=== PATIENT | female | born 1965 | race Caucasian/White ===

== ENCOUNTER → 2024-02-11 06:20 | Day surgery (SDC) | payer OTHER, SELFPAY | LOC: GI 06:20 | PROVIDERS: ATTENDING PHYSICIAN Internal Medicine Gastroenterology | DX: Z12.11 Encounter for screening for malignant neoplasm of colon (principal); R19.4 Change in bowel habit; R10.13 Epigastric pain; K64.8 Other hemorrhoids; K44.9 Diaphragmatic hernia without obstruction or gangrene; K31.89 Other diseases of stomach and duodenum; K29.50 Unspecified chronic gastritis without bleeding | CPT/HCPCS: 43239; G0105; 88305; 88342 ==

== ENCOUNTER → 2024-04-29 07:53 | Outpatient (REF) | payer OTHER, SELFPAY | LOC: RAD 07:53 | PROVIDERS: ATTENDING PHYSICIAN Physician Assistant; FAMILY PHYSICIAN Physician Assistant | DX: R68.81 Early satiety (principal) | CPT/HCPCS: 78264; A9541 ==

== ENCOUNTER → 2024-05-11 06:52 | Outpatient (REF) | payer OTHER, SELFPAY | LOC: RAD 06:52 | PROVIDERS: ATTENDING PHYSICIAN Physician Assistant; FAMILY PHYSICIAN Physician Assistant | DX: R10.13 Epigastric pain (principal) | CPT/HCPCS: 76700 ==

== ENCOUNTER → 2024-08-17 17:19 | Outpatient (REF) | payer OTHER, SELFPAY | LOC: RAD 17:19 | PROVIDERS: ATTENDING PHYSICIAN Internal Medicine | DX: M75.41 Impingement syndrome of right shoulder (principal) | CPT/HCPCS: 73030 ==

== ENCOUNTER → 2024-09-25 07:17 | Outpatient (REF) | payer OTHER, SELFPAY | LOC: MRI 07:17 | PROVIDERS: ATTENDING PHYSICIAN Orthopaedic Surgery; FAMILY PHYSICIAN Physician Assistant | DX: M54.2 Cervicalgia (principal) | CPT/HCPCS: 72141 ==

== ENCOUNTER → 2024-09-29 17:21 | Outpatient (REF) | payer OTHER, SELFPAY | LOC: WDC 17:21 | PROVIDERS: ATTENDING PHYSICIAN Obstetrics & Gynecology; FAMILY PHYSICIAN Physician Assistant | DX: Z12.31 Encounter for screening mammogram for malignant neoplasm of breast (principal) | CPT/HCPCS: 77063; 77067 ==

== ENCOUNTER → 2024-11-14 07:40 | Outpatient (REF) | payer OTHER, SELFPAY | LOC: RCS 07:40 | PROVIDERS: ATTENDING PHYSICIAN Pain Medicine Interventional Pain Medicine; FAMILY PHYSICIAN Physician Assistant | DX: Z01.818 Encounter for other preprocedural examination (principal) | CPT/HCPCS: 93005 ==

== ENCOUNTER 2025-01-11 06:23 | Outpatient (RCR) | payer OTHER, SELFPAY | END 2025-01-11 23:59 | disposition home or self-care (01) | LOC: RPT 06:23 | PROVIDERS: ATTENDING PHYSICIAN Physician Assistant; FAMILY PHYSICIAN Physician Assistant | DX: M54.12 Radiculopathy, cervical region (principal); M48.02 Spinal stenosis, cervical region; M50.30 Other cervical disc degeneration, unspecified cervical region; Z73.6 Limitation of activities due to disability | CPT/HCPCS: 97110; 97162 ==

== ENCOUNTER 2025-02-08 17:04 | Outpatient (RCR) | payer OTHER, SELFPAY | END 2025-02-08 23:59 | disposition home or self-care (01) | LOC: RPT 17:04 | PROVIDERS: ATTENDING PHYSICIAN Physician Assistant; FAMILY PHYSICIAN Physician Assistant | DX: M54.12 Radiculopathy, cervical region (principal); M48.02 Spinal stenosis, cervical region; M50.30 Other cervical disc degeneration, unspecified cervical region; Z73.6 Limitation of activities due to disability | CPT/HCPCS: 97010; 97110 ==

== ENCOUNTER 2025-03-01 17:07 | Outpatient (RCR) | payer OTHER, SELFPAY | END 2025-03-02 13:01 | disposition home or self-care (01) | LOC: RPT 17:07 | PROVIDERS: ATTENDING PHYSICIAN Physician Assistant; FAMILY PHYSICIAN Physician Assistant | DX: M54.12 Radiculopathy, cervical region (principal); M48.02 Spinal stenosis, cervical region; M50.30 Other cervical disc degeneration, unspecified cervical region; Z73.6 Limitation of activities due to disability | CPT/HCPCS: 97110 ==